=== PATIENT | male | born 1945 | race Caucasian/White ===

== ENCOUNTER 2018-01-07 12:15 | Emergency (ER) | payer MEDICARE ==
[~2018-01-07] VITALS: Ht 177.8 cm; Wt 78.0 kg
[2018-01-07 13:05] LABS: BASOPHILS # (AUTO) 0.02 x10^3/uL (0-0.1); BASOPHILS % (AUTO) 0 % (0-1); EOSINOPHILS # (AUTO) 0.06 x10^3/uL (0-0.4); EOSINOPHILS % (AUTO) 2 % (1-7); LYMPHOCYTES # (AUTO) 1.38 x10^3/uL (1-3.4); LYMPHOCYTES % (AUTO) 34 % (22-44); MD NO; MEAN CORPUSCULAR HEMOGLOBIN 30.6 pg (27.5-34.5); MEAN CORPUSCULAR HGB CONC 33.9 g/dL (33.2-36.2); MEAN CORPUSCULAR VOLUME 90.3 fL (81-97); MEAN PLATELET VOLUME 9.6 fL (7.4-10.4); MONOCYTES # (AUTO) 0.43 x10^3/uL (0.2-0.8); MONOCYTES % (AUTO) 11 % (2-9); NEUTROPHILS # (AUTO) 2.15 x10^3/uL (1.8-6.8); NEUTROPHILS % (AUTO) 53 % (42-75); PLATELET COUNT 164 x10^3/uL (130-400); RED BLOOD COUNT 5.14 x10^6/uL (4.38-5.82); RED CELL DISTRIBUTION WIDTH 13.6 % (9.4-14.8)
[2018-01-07 13:16] LABS: ANION GAP 9 mmol/L (5-15); CALCIUM 8.5 mg/dL (8.5-10.1); CHLORIDE 106 mmol/L (98-107); CREATININE 1.02 mg/dL (0.7-1.3)
[2018-01-07 13:20] LABS: TROPONIN I < 0.015 ng/mL (0.000-0.045)
[2018-01-07 14:25] VITALS: BP 133/88
== END 2018-01-07 14:30 | disposition home or self-care (01) ==
LOC: ED 14:24
DX: E11.65 Type 2 diabetes mellitus with hyperglycemia (principal); R53.1 Weakness; F41.9 Anxiety disorder, unspecified
CPT/HCPCS: 36415; 71046; 80048; 82040; 83880; 84484; 85025; 93005; 99285

== ENCOUNTER 2019-07-28 13:55 | Emergency (ER) | payer MEDICAID, MEDICARE ==
[~2019-07-28] VITALS: Ht 180.3 cm; Wt 82.0 kg
--- NOTE | 2019-07-28 14:45 | NUR ---
XRAY COMPLETED AND POLICE AT BEDSIDE INTERVIEWING PT
[2019-07-28 15:00] VITALS: BP 145/83
--- NOTE | 2019-07-28 16:25 | NUR ---
PT GIVEN DISCHARGE PAPERS. AMBULATED FIRST TO BATHROOM AND THEN TO DISCHARGE WINDOW WITHOUT ASSISTANCE. PT TO WAIT FOR RIDE WHO IS ON HIS WAY IN LOBBY
== END 2019-07-28 16:27 | disposition home or self-care (01) ==
LOC: ED 16:15
DX: S16.1XXA Strain of muscle, fascia and tendon at neck level, initial encounter (principal); S29.012A Strain of muscle and tendon of back wall of thorax, initial encounter; G89.11 Acute pain due to trauma; I10 Essential (primary) hypertension; E11.9 Type 2 diabetes mellitus without complications; M51.34 Other intervertebral disc degeneration, thoracic region; V49.09XA Driver injured in collision with other motor vehicles in nontraffic accident, initial encounter; Y93.89 Activity, other specified; Y92.89 Other specified places as the place of occurrence of the external cause; Y99.8 Other external cause status
CPT/HCPCS: 72072; 72125; 99284